=== PATIENT | female | born 1960 | race Caucasian/White ===

== ENCOUNTER 2017-07-07 13:41 | Emergency (ER) | payer OTHER ==
[2017-07-07] MEDS ORDERED: ACETAMINOPHEN 500 MG TAB PO ONE (13:55)
--- NOTE | 2017-07-07 14:26 | EDPHY ---
H & P Time Seen by Provider: 07/07/17 13:58 HPI/ROS: CHIEF COMPLAINT: Dog bite face HISTORY OF PRESENT ILLNESS: 57-year-old female presents to the emergency department by private vehicle with a dog bite to her face and her head. The patient has a rescue dog that she has had for the last 7 months and the dog was riding in the back seat with her. She apparently was told and the dog lunged and bit her in her forehead and scalp. The incident happened just prior to arrival. The dog is up-to-date on immunizations. The patient's tetanus shot is current. She denies any other trauma or injury. ROS: Denies neck pain. Denies retained foreign body. Denies chest pain or difficulty breathing. Past Medical/Surgical History: Negative Social History: Smoking Status: Never smoked Physical Exam: On examination the patient has a large 10 cm scalp laceration that extends into her forehead. Slow active bleeding noted. No signs of retained foreign body. No palpable crepitus. No evidence of depressed skull fracture. There is also much smaller less than 2 cm very superficial scalp laceration that extends into the forehead with no active bleeding. No other puncture wounds visualized. Patient is mentating normally. Her is at bedside. Constitutional: Initial Vital Signs Temperature (C) 36.6 C 07/07/17 13:42 Heart Rate 55 L 07/07/17 13:42 Respiratory Rate 20 07/07/17 13:42 Blood Pressure 152/86 H 07/07/17 13:42 O2 Sat (%) 100 07/07/17 13:42 O2 Delivery Mode Room Air Allergies/Adverse Reactions: No Known Allergies Allergy (Unverified 07/07/17 13:46) Home Medications: Medication Instructions Recorded Amoxicillin/Clavulanate Pot 875 mg PO BID #14 tab 07/07/17 [Augmentin 875 mg tab] MDM/Departure - MDM Procedures: Laceration repair. Verbal consent was obtained from the patient. The 10 cm laceration on the scalp extending into right forehead was anesthetized using 1% lidocaine with epinephrine. The wound was irrigated with saline, draped and explored to its base with a gloved finger. There were no deep structures involved. The wound was repaired with 5 0 Vicryl 5 sutures, 10 jazmín, 6 0 Prolene 7 sutures. The wound repair was complex. The procedure was performed by myself. Medications Given: Discontinued Medications Acetaminophen (Tylenol) 1,000 mg PO EDNOW ONE Stop: 07/07/17 13:56 Last Admin: 07/07/17 14:06 Dose: 1,000 mg ED Course/Re-evaluation: 57-year-old female presents to the emergency department with dog bite. The wound was repaired, see procedure note. She was started on Augmentin 875 mg twice daily for 1 week to prevent infection. Her tetanus shot is current. - Depart Disposition: Home, Routine, Self-Care Clinical Impression: Dog bite of face Qualifiers: Encounter type: initial encounter Qualified Code(s): S01.85XA - Open bite of other part of head, initial encounter Condition: Good Instructions: Animal Bite (ED), Care For Your Stitches (ED), Laceration (ED), Acute Wounds (ED) Additional Instructions: Wound Care Follow-Up: Removal of sutures in 7 days. Suture removal is complimentary in uncomplicated cases. Infection or abnormal findings would require reevaluation by the MD. In that case, you may be billed. Ibuprofen 400mg every 8 hours for pain as directed. Augmentin twice daily for 5 days to prevent infection. Return if you notice any signs or symptoms of infection such as redness, swelling, increased pain, fever, purulent drainage. Prescriptions: Amoxicillin/Clavulanate Pot [Augmentin 875 mg tab] 875 mg PO BID #14 tab Referrals: ZO [email or web address] [Other] - As per Instructions
[2017-07-07 15:27] VITALS: BP 143/85; PULSE 54; RESP 18; TEMP 97.5; O2SAT 98
== END 2017-07-07 15:26 | disposition home or self-care (01) ==
PROC: 0HQ0XZZ Repair Scalp Skin, External Approach (ICD-10-PCS; principal; 2017-07-07)
DX: S01.85XA Open bite of other part of head, initial encounter (principal); W54.0XXA Bitten by dog, initial encounter